=== PATIENT | female | born 1980 | race Caucasian/White ===

== ENCOUNTER → 2025-09-02 13:44 | Outpatient (REF) | payer OTHER, SELFPAY | LOC: WDC 13:44 | PROVIDERS: ATTENDING PHYSICIAN Physician Assistant | DX: Z12.31 Encounter for screening mammogram for malignant neoplasm of breast (principal) | CPT/HCPCS: 77063; 77067 ==

== ENCOUNTER → 2025-09-22 07:07 | Outpatient (REF) | payer OTHER, SELFPAY ==
--- NOTE | 2025-09-22 12:59 | OID.BR.INTR ---
OID Breast Navigator - Initial
- -
Did not meet patient at time of biopsy. Will follow up per protocol.
== END ==
LOC: WDC 07:07
PROVIDERS: ATTENDING PHYSICIAN Physician Assistant
DX: R92.1 Mammographic calcification found on diagnostic imaging of breast (principal)
CPT/HCPCS: 19081; 76098; 88305; 88360; A4648